=== PATIENT | male | born 1995 | race Caucasian/White ===

== ENCOUNTER 2017-01-22 01:55 | Emergency (ER) | payer SELFPAY ==
[~2017-01-22] VITALS: Ht 177.8 cm; Wt 81.2 kg
[2017-01-22 01:57] VITALS: BP 120/75; PULSE 84; RESP 18; O2SAT 96
--- NOTE | 2017-01-22 02:27 | ED.REPORT ---
HPI-Abd Pain M Under 40 Date of Service January 22, 2017 ED Provider: Travis Garcia MD 21 year old male with a history of migraines as a child presents to the ER accompanied by his girlfriend complaining of headache rated 10/10 in severity, onset suddenly at 11:30 tonight. He describes the pain as a burning sensation in the occipital region. Associated symptoms include nausea and dizziness. Patient denies any focal neurological deficits. He smokes marijuana daily before bed to help him sleep. Nursing Notes Stated Complaint: NAUSEA/HEADACHE Chief Complaint: Male Abdominal Pain Nursing Notes Reviewed: Yes Allergies: Uncoded Allergies: PENICILLIN (Allergy, Unknown, 01/22/17) SULFA (Allergy, Unknown, 01/22/17) Scheduled PRN Prochlorperazine Maleate (Compazine Suppository) 25 Mg Supp.rect 25 MG RC Q8 PRN PRN For Nausea/Vomiting Sumatriptan Succinate (Sumatriptan Succinate) 6 Mg/0.5 Ml Pen.injctr 6 MG SQ ONCE PRN PRN migraine General Time Seen by MD: 02:25 Chief Complaint Other (Headache) Hx Obtained From: Patient Arrived By: Walk-in Sudden in Onset?: Yes Onset Occurred: 1 - 4 hours ago Symptom Duration: Since onset Associated with: Reports: Nausea, Denies: Vomiting Context Related History: Reports: Peptic ulcer disease Similar Sx Previous: No Past Medical History Past Medical History Peptic ulcers Migraines as a child Smoking History Never Smoker Social History Alcohol Use: Denies alcohol use Drug Use: THC Ambulatory Status Independent Review of Systems Constitutional: Denies: Chills, Fever Cardiovascular: Denies: Chest pain GI: Reports: Nausea, Denies: Constipation, Diarrhea, Vomiting Complete sys rev & neg: except as marked. Neurologic: Reports: Dizziness, Headache, Denies: Change LOC, Slurred speech, Vision change Physical Exam Initial Vital Signs Vital Signs (First) Date Time Temp Pulse Resp B/P Pulse Ox O2 Delivery O2 Flow Rate FiO2 01/22/17 01:57 36 84 18 120/75 96 Room Air Initial VS: Reviewed Neck: Supple, Non-tender, Full range of motion Extremities: Vascular intact, Neuro intact, No swelling, No tenderness Skin: Warm, Dry, No cyanosis General/Constitutional: Awake, Alert, Well developed, Well nourished Respiratory / Chest: Breath sounds NL, Breath sounds = bilat, No respiratory distress, No rales, No rhonchi, No wheezing, No stridor Cardiovascular: Heart rate NL, Regular rhythm, Heart sounds NL, Peripheral circulation NL Head / Eyes: Atraumatic, Normocephalic, PERRL, EOMI Tender to palpation over the occipital bones. Neurologic: Oriented X3, Speech NL, No motor deficits, No sensory deficits, CN II - XII intact Interpretation & Diagnostics Lab Results Interpretation Result Diagram: 01/22/17 0316 01/22/17 0316 Test 01/22/17 03:16 White Blood Count 7.0th/mm3 (3.8-10.1) Red Blood Count 4.65mil/mm3 (4.40-5.80) Hemoglobin 14.6g/dL (13.8-17.2) Hematocrit 40.7% (41.0-50.0) Mean Corpuscular Volume 87.5fL (81-100) Mean Corpuscular Hemoglobin 31.4pg (27.0-35.0) Mean Corpuscular Hemoglobin Concent 35.9% (32.0-37.0) Red Cell Distribution Width 12.0% (12.3-15.4) Platelet Count 225bil/L (150-400) Neutrophils (%) (Auto) 61.3% (40-74) Lymphocytes (%) (Auto) 22.0% (14-46) Monocytes (%) (Auto) 11.6% (4-12) Eosinophils (%) (Auto) 3.9% (0-5) Basophils (%) (Auto) 0.9% (0-3) Erythrocyte Sedimentation Rate 4mm/hr (0-15) Sodium Level 141mEq/L (134-144) Potassium Level 4.0mEq/L (3.5-5.2) Chloride Level 101mEq/L (97-108) Carbon Dioxide Level 27mmol/L (18-29) Blood Urea Nitrogen 11mg/dL (6-20) Creatinine 0.78mg/dL (0.76-1.27) Estimat Glomerular Filtration Rate 132mL/min (>59) Glucose Level 198mg/dL (60-99) Calcium Level 9.5mg/dL (8.5-10.1) C-Reactive Protein 0.0mg/dL (0.0-0.5) CT Head Interpretation CONCLUSION: Normal exam. No acute intracranial abnormality. Electronically signed by Dorota Law MD Study: Head CT no contrast Interpretation / Wet Read by: Interpret - Radiologist Re-Eval/Medical Decision Med Decision/Clinical Course 21-year-old with childhood migraine presents with a rapid but not instantaneous onset headache tonight. Neurologically is intact. CT is negative. Low risk for bleed and low indication for spinal tap. Risks benefits alternatives discussed and he refuses. I think his risk is low enough at this point not to justify a CT angiogram either. He is much improved after routine migraine cocktail here and is discharged home with sumatriptan, Compazine suppositories, and plan for follow-up with PCP. Source of Hx: Old records Re-Evaluation/Progress : Time of Eval: 03:57 Re-Evaluation/Progress Note: Patient is sleeping comfortably. Discussed lab and imaging results and plan to discharge. Patient is amenable to the plan. Return precautions given. All other questions addressed. Counseled Regarding: Diagnosis, Lab results, Need for follow-up, When/why to return to ED Patient Discharge & Departure Primary Impression: Headache Additional Impression: Migraine Disposition: Home Discharge Condition All VS Reviewed: Yes Condition: Stable Patient Instructions: Acute Headache (GEN) Additional Instructions: Given your past history, this headache today was almost surely migraine. You may have more in the near future, and may not. Treatment of this is often able to be done at home. Begin with Excedrin Migraine, or similar [id number] migraine products. If that is not immediately effective, take Sumatriptan, best given as an injection. Compazine suppositories may also be used both for headache and for nausea. Follow-up with your doctor in the office. You may follow-up at residency clinic if needed. Referrals: Rito Cast MD, PhD (PCP) Olesya Attestation Portions of this note were transcribed by Erik Nam. I, Dr. Garcia, personally performed the history, physical exam and medical decision-making; I reviewed and confirmed the accuracy of the information in the transcribed note. Signed by: Olesya Higgins, 01/22/2017 at 04:20 copies to: Rito Cast MD, PhD Travis Garcia MD January 22, 2017 02:27 ERIK NAM January 22, 2017 02:29
[2017-01-22] MEDS ORDERED: 0.9% Sodium Chloride 1,000 ML IV ONE (03:09)
[2017-01-22] MEDS ORDERED: Haloperidol 5 mg/mL Inj IVPUSH ONE (03:10)
[2017-01-22] MEDS ORDERED: Ondansetron 2 mg/mL 2 mL Inj IVPUSH ONE (03:10)
[2017-01-22 03:23] LABS: BASOPHILS % (AUTO) 0.9 % (0-3); EOSINOPHILS % (AUTO) 3.9 % (0-5); MONOCYTES % (AUTO) 11.6 % (4-12); Mean Corpuscular Hemoglobin 31.4 pg (27.0-35.0); Mean Corpuscular Volume 87.5 fL (81-100); NEUTROPHILS % (AUTO) 61.3 % (40-74); Platelet Count 225 bil/L (150-400)
[2017-01-22 03:38] LABS: ERYTHROCYTE SEDIMENTATION RATE 4 mm/hr (0-15)
[2017-01-22] MEDS ORDERED: SUMA6PEN9 SQ (04:12)
[2017-01-22] MEDS ORDERED: PROC25SU30 RC (04:13)
[2017-01-22 04:39] VITALS: BP 119/72; PULSE 86; RESP 16; O2SAT 94
--- NOTE | 2017-01-22 07:19 | DRSVH ---
PROCEDURE: CT BRAIN WITHOUT CONTRAST ([id number]) INDICATIONS: Headaches. TECHNIQUE: Noncontrast 4.5 mm thick angled axial sections acquired from the foramen magnum to the vertex, with c oronal reformats. COMPARISON: None. FINDINGS: Image quality: Excellent. CSF spaces: Basal cisterns are patent. No extra-axial fluid collections. Ventricles are normal in size and shape. Brain: No midline shift. No intracranial masses or hemorrhage. Engel-white matter interface is norm al. Skull and face: Calvarium and visualized facial bones are intact, without suspicious lesions. Sinuses: Visualized sinuses and mastoids are clear. IMPRESSION: 1. No acute intracranial abnormalities. No significant discrepancy with the scene shifter radiology preliminary report. Dictated by: Krishan Rivero M.D. on 01/22/2017 at 7:17 Transcribed by: DALTON on 01/22/2017 at 7:19 Approved by: Krishan Rivero M.D. on 01/23/2017 at 7:53
== END 2017-01-22 04:40 | disposition home or self-care (01) ==
LOC: SED 01:55
DX: G43.909 Migraine, unspecified, not intractable, without status migrainosus (principal); R42 Dizziness and giddiness; R11.0 Nausea; Z88.0 Allergy status to penicillin; Z88.2 Allergy status to sulfonamides
CPT/HCPCS: 36415; 70450; 80048; 85025; 85651; 86140; 96361; 96374; 96375; 99285; J1200; J1630; J1885; J2405; J7030